=== PATIENT | male | born 1930 | race Caucasian/White ===

== ENCOUNTER 2016-10-23 08:51 | Inpatient (IN) | payer OTHER ==
[~2016-10-23] VITALS: Ht 172.7 cm; Wt 80.7 kg
[~2016-10-23 08:51] MED LIST: ASPI-1035 PO; LISI40TA4 PO; NAPROXEN PO; SIMV20TA2 PO; [UNRECOGNIZED DRUG - CODE]
[2016-10-23 11:11] LABS: BASOPHILS % 0.4 % (0.0-2.0); HEMATOCRIT. 29.8 % (42.0-52.0); HEMOGLOBIN. 9.8 g/dL (14.0-18.0); LYMPHOCYTES % 14.8 % (20.0-50.0); MEAN CORPUSCULAR HEMOGLOBIN 28.4 pg (28.0-32.0); MEAN CORPUSCULAR HGB CONC 32.7 g/dL (31.0-37.0); MEAN CORPUSCULAR VOLUME 86.8 fL (80.0-94.0); MEAN PLATELET VOLUME 8.5 fl (7.4-10.4); MONOCYTES % 6.5 % (2.0-8.0); NEUTROPHILS % 70.3 % (40.0-76.0); PLATELET 179 x1000/uL (130-400); RED BLOOD CELL COUNT 3.44 mill/uL (4.7-6.1); RED CELL DISTRIBUTION WIDTH 14.6 % (11.6-14.6); WHITE BLOOD COUNT 7.4 x1000/uL (4.5-11.0)
[2016-10-23 11:24] LABS: AMMONIA 27 uMol/L (<32); INDEX HEMOLYSI 1 (1-3)
[2016-10-23 11:28] LABS: ALANINE AMINOTRANSFERASE 19 IU/L (13-61); ANION GAP 8; CALCIUM 8.3 mg/dL (8.5-10.1); CARBON DIOXIDE 28 mEq/L (21-32); CHLORIDE 108 mEq/L (98-107); ETHANOL BLOOD < 10 mg/dL; INDEX HEMOLYSI 1 (1-3); INDEX ICTERIC 1 (1-4); INDEX LIPEMIC 1 (1-3); TROPONIN I < 0.02 ng/mL (0.00-0.04); UREA NITROGEN BLOOD 25 mg/dL (7-21); eGFR > 60 mL/min (>60)
[2016-10-23 11:30] LABS: PHENOBARBITAL < 2.1 ug/mL (15.0-40.0)
[2016-10-23 11:30] LABS: CLARITY URINE CLEAR (CLEAR); COLOR URINE YELLOW (YELLOW); GLUCOSE URINE NEGATIVE (NEGATIVE); KETONES URINE NEGATIVE (NEGATIVE); LEUKOCYTE ESTERASE URINE 1+ (NEGATIVE); NITRITE URINE POSITIVE (NEGATIVE); OCCULT BLOOD URINE 2+ (NEGATIVE); PROTEIN URINE NEGATIVE (NEGATIVE); UROBILINOGEN URINE 0.2 E.U./dL (0.2-1.0)
[2016-10-23 11:55] LABS: *AMPHETAMINES SCREEN URINE NEGATIVE (NEGATIVE); *BARBITURATES SCREEN URINE NEGATIVE (NEGATIVE); *BENZODIAZEPINES SCREEN URINE NEGATIVE (NEGATIVE); *COCAINE SCREEN URINE NEGATIVE (NEGATIVE); CANNABINOID URINE SCREEN NEGATIVE (NEGATIVE); ECSTASY MDMA SCREEN URINE NEGATIVE (NEGATIVE); METHADONE URINE SCREEN NEGATIVE (NEGATIVE); OPIATES URINE SCREEN NEGATIVE (NEGATIVE); PHENCYCLIDINE URINE SCREEN NEGATIVE (NEGATIVE)
[2016-10-23 11:58] LABS: BACTERIA URINE 1+; SQUAMOUS EPITHELIAL CELL URINE RARE /lpf (RARE/1+)
[2016-10-23] MEDS ORDERED: PHENYTOIN SODIUM 1,000 MG in SODIUM CHLORIDE 0.9% 100 ML IV NR (17:00)
[2016-10-23] MEDS ORDERED: ONDANSETRON HCL 4MG/2ML VIAL IV PRN (19:30)
[2016-10-23] MEDS ORDERED: ACETAMINOPHEN 325MG TABLET PO PRN (19:30)
[2016-10-23] MEDS ORDERED: DEXTROSE 50% WATER 50ML SYRINGE IV PRN (19:30)
[2016-10-23 20:00] VITALS: BP_SYST 122; BP_DIAS 61; BP_DIAS 73
[2016-10-23] MEDS: INSULIN LISPRO 100 UNITS/ML SUBCUT SCH (21:00)
[2016-10-23] MEDS: BLOOD SUGAR DIAGNOSTIC STRIP TEST SCH (21:00)
[2016-10-23] MEDS: HYDRALAZINE HCL 100MG TABLET PO SCH (22:00)
[2016-10-23] MEDS: PHENYTOIN SODIUM EXTENDED 100MG CAPSULE PO SCH (22:00)
[2016-10-23] MEDS: SODIUM CHLORIDE 0.9% 1,000 ML IV SCH (22:55)
[2016-10-24] VITALS: BP 108/55
[2016-10-24 04:00] VITALS: BP 114/60
[2016-10-24 07:03] LABS: BASOPHILS % 0.3 % (0.0-2.0); EOSINOPHILS % 5.7 % (0.0-5.0); HEMOGLOBIN. 10.1 g/dL (14.0-18.0); LYMPHOCYTES % 22.8 % (20.0-50.0); MEAN CORPUSCULAR HEMOGLOBIN 28.4 pg (28.0-32.0); MEAN CORPUSCULAR HGB CONC 32.6 g/dL (31.0-37.0); MEAN CORPUSCULAR VOLUME 87.1 fL (80.0-94.0); MONOCYTES % 8.6 % (2.0-8.0); NEUTROPHILS % 62.6 % (40.0-76.0); PLATELET 180 x1000/uL (130-400); RED BLOOD CELL COUNT 3.56 mill/uL (4.7-6.1); RED CELL DISTRIBUTION WIDTH 14.5 % (11.6-14.6)
[2016-10-24 07:54] LABS: CHLORIDE 108 mEq/L (98-107); INDEX HEMOLYSI 1 (1-3); INDEX ICTERIC 1 (1-4); INDEX LIPEMIC 1 (1-3)
[2016-10-24] MEDS: BLOOD SUGAR DIAGNOSTIC STRIP TEST SCH ×4 (08:06→21:02)
[2016-10-24] MEDS: HYDRALAZINE HCL 100MG TABLET PO SCH ×2 (08:31→17:00)
[2016-10-24] MEDS: DOCUSATE SODIUM 100MG CAPSULE PO SCH ×2 (08:31→17:00)
[2016-10-24] MEDS: PHENYTOIN SODIUM EXTENDED 100MG CAPSULE PO SCH ×3 (08:31→17:38)
[2016-10-24 08:33] LABS: ANION GAP 17; CARBON DIOXIDE 19 mEq/L (21-32); PHENYTOIN 14.3 ug/mL (10-20); UREA NITROGEN BLOOD 22 mg/dL (7-21); eGFR > 60 mL/min (>60)
[2016-10-24 12:00] VITALS: BP 103/58
[2016-10-24] MEDS: INSULIN LISPRO 100 UNITS/ML SUBCUT SCH ×3 (12:40→20:16)
[2016-10-24] MEDS: SODIUM CHLORIDE 0.9% 1,000 ML IV SCH (12:53)
[2016-10-24] MEDS: LEVOFLOXACIN 500MG PREMIX 100 ML IV SCH (13:03)
[2016-10-24] MEDS: LORAZEPAM 2MG/ML CPJ IM PRN ×2 (15:17→20:40)
[2016-10-24 16:00] VITALS: BP 100/56
[2016-10-24 20:00] VITALS: BP 108/49
[2016-10-25] VITALS: BP 115/45
[2016-10-25 04:00] VITALS: BP 115/55
[2016-10-25] MEDS: BLOOD SUGAR DIAGNOSTIC STRIP TEST SCH ×4 (05:50→21:00)
[2016-10-25] MEDS: INSULIN LISPRO 100 UNITS/ML SUBCUT SCH ×4 (05:50→21:00)
[2016-10-25 08:00] VITALS: BP 119/59
[2016-10-25] MEDS: PHENYTOIN SODIUM EXTENDED 100MG CAPSULE PO SCH ×3 (08:47→17:58)
[2016-10-25] MEDS: DOCUSATE SODIUM 100MG CAPSULE PO SCH ×2 (08:47→17:55)
[2016-10-25] MEDS: HYDRALAZINE HCL 100MG TABLET PO SCH ×2 (08:47→17:58)
[2016-10-25 12:00] VITALS: BP 113/57
[2016-10-25] MEDS: LEVOFLOXACIN 500MG PREMIX 100 ML IV SCH (12:26)
[2016-10-25 16:00] VITALS: BP_SYST 105; BP_SYST 135; BP_DIAS 55; BP_DIAS 58
[2016-10-25 20:00] VITALS: BP 107/47
[2016-10-26] VITALS: BP 103/51
[2016-10-26 04:00] VITALS: BP 105/41
[2016-10-26] MEDS: INSULIN LISPRO 100 UNITS/ML SUBCUT SCH ×2 (06:21→11:55)
[2016-10-26] MEDS: BLOOD SUGAR DIAGNOSTIC STRIP TEST SCH ×2 (06:21→11:55)
[2016-10-26 08:00] VITALS: BP 95/41
[2016-10-26] MEDS: HYDRALAZINE HCL 100MG TABLET PO SCH (08:15)
[2016-10-26] MEDS: PHENYTOIN SODIUM EXTENDED 100MG CAPSULE PO SCH ×2 (08:18→12:05)
[2016-10-26] MEDS: DOCUSATE SODIUM 100MG CAPSULE PO SCH (08:18)
[2016-10-26 10:39] VITALS: BP 108/49
[2016-10-26] MEDS: LEVOFLOXACIN 500MG PREMIX 100 ML IV SCH (11:50)
[2016-10-26 11:54] VITALS: BP 116/56
== END 2016-10-26 14:22 | disposition home or self-care (01) | DRG 53 ==
LOC: ER 08:58 → 8WST 13:43
PROVIDERS: ADMIT Hospitalist; ATTEND Hospitalist
DX: G40.909 Epilepsy, unspecified, not intractable, without status epilepticus (principal); N39.0 Urinary tract infection, site not specified; E11.9 Type 2 diabetes mellitus without complications; I10 Essential (primary) hypertension; Z88.0 Allergy status to penicillin; Z79.82 Long term (current) use of aspirin; Z79.899 Other long term (current) drug therapy
CPT/HCPCS: 36415; 51702; 70450; 71010; 80048; 80053; 80184; 80185; 80305; 81001; 82140; 82962; 83036; 84484; 85025; 92610; 96374; 99285; C1893; G0482; J1165; J1956; J2060; J7030; J7050

== ENCOUNTER 2016-12-27 13:33 | Inpatient (IN) | payer OTHER ==
[~2016-12-27] VITALS: Ht 167.6 cm; Wt 68.0 kg
[2016-12-27] MEDS ORDERED: SODIUM CHLORIDE 0.9% 1,000 ML IV ONE (14:26)
[2016-12-27] MEDS ORDERED: LEVETIRACETAM 500MG PREMIX 100 ML IV ONE (14:30)
[2016-12-27 14:59] LABS: BASOPHILS % 0.3 % (0.0-2.0); EOSINOPHILS % 6.5 % (0.0-5.0); HEMOGLOBIN. 10.7 g/dL (14.0-18.0); LYMPHOCYTES % 13.2 % (20.0-50.0); MEAN CORPUSCULAR HEMOGLOBIN 28.8 pg (28.0-32.0); MEAN CORPUSCULAR VOLUME 85.9 fL (80.0-94.0); MEAN PLATELET VOLUME 8.8 fl (7.4-10.4); MONOCYTES % 8.4 % (2.0-8.0); NEUTROPHILS % 71.6 % (40.0-76.0); PLATELET 156 x1000/uL (130-400); RED BLOOD CELL COUNT 3.72 mill/uL (4.7-6.1); RED CELL DISTRIBUTION WIDTH 14.7 % (11.6-14.6)
[2016-12-27 15:00] LABS: CHLORIDE 106 mEq/L (98-107); PARTIAL THROMBOPLASTIN TIME 25.5 sec (24.0-34.0); PROTHROMBIN TIME 10.6 sec
[2016-12-27 15:02] LABS: AMMONIA 19 uMol/L (<32)
[2016-12-27 15:05] LABS: CARBON DIOXIDE 27 mEq/L (21-32); ETHANOL BLOOD < 10 mg/dL; PHENYTOIN 2.3 ug/mL (10-20)
[2016-12-27 15:06] LABS: CREATINE KINASE MB FRACTION 1.5 ng/mL (0.5-3.6); TROPONIN I < 0.02 ng/mL (0.00-0.04)
[2016-12-27 15:07] LABS: CARBAMAZEPINE < 0.5 ug/mL (4-12); PHENOBARBITAL < 2.1 ug/mL (15.0-40.0); VALPROIC ACID < 3.0 ug/mL (50-100)
[2016-12-27] MEDS ORDERED: PHENYTOIN SODIUM 1,000 MG in SODIUM CHLORIDE 0.9% 100 ML IV ONE (15:45)
[2016-12-27] MEDS ORDERED: ASPIRIN 300MG SUPP PR ONE (17:15)
[2016-12-27 17:29] LABS: CLARITY URINE CLEAR (CLEAR); COLOR URINE YELLOW (YELLOW); GLUCOSE URINE NEGATIVE (NEGATIVE); KETONES URINE NEGATIVE (NEGATIVE); LEUKOCYTE ESTERASE URINE NEGATIVE (NEGATIVE); NITRITE URINE NEGATIVE (NEGATIVE); OCCULT BLOOD URINE NEGATIVE (NEGATIVE); PROTEIN URINE NEGATIVE (NEGATIVE); SPECIFIC GRAVITY URINE 1.014 (1.005-1.030); UROBILINOGEN URINE 0.2 E.U./dL (0.2-1.0)
[2016-12-27 17:41] LABS: *AMPHETAMINES SCREEN URINE NEGATIVE (NEGATIVE); *BARBITURATES SCREEN URINE NEGATIVE (NEGATIVE); *BENZODIAZEPINES SCREEN URINE NEGATIVE (NEGATIVE); *COCAINE SCREEN URINE NEGATIVE (NEGATIVE); CANNABINOID URINE SCREEN NEGATIVE (NEGATIVE); METHADONE URINE SCREEN NEGATIVE (NEGATIVE); OPIATES URINE SCREEN NEGATIVE (NEGATIVE); PHENCYCLIDINE URINE SCREEN NEGATIVE (NEGATIVE)
[2016-12-27] MEDS ORDERED: ACETAMINOPHEN 325MG TABLET PO PRN (18:30)
[2016-12-27] MEDS ORDERED: DOCUSATE SODIUM 100MG CAPSULE PO PRN (18:30)
[2016-12-27] MEDS ORDERED: NITROGLYCERIN 0.4MG TABLET SL SL PRN (18:30)
[2016-12-27] MEDS ORDERED: ZOLPIDEM TARTRATE 5MG TABLET PO PRN (18:30)
[2016-12-27] MEDS ORDERED: CLONIDINE 0.1MG TABLET PO PRN (18:30)
[2016-12-27] MEDS ORDERED: IPRATROPIUM/ALBUTEROL 0.5-3(2.5)MG/3ML NEB INH PRN (18:30)
[2016-12-27] MEDS ORDERED: ONDANSETRON HCL 4MG/2ML VIAL IV PRN (18:30)
[2016-12-27] MEDS ORDERED: LORAZEPAM 2MG/ML CPJ IV PRN (18:30)
[2016-12-27] MEDS ORDERED: DIPHENHYDRAMINE 50MG/ML VIAL IV PRN (18:30)
[2016-12-27] MEDS ORDERED: MAGNESIUM/ALUMINUM HYDROXIDE/SIMETHICONE 30ML UDC PO PRN (18:30)
[2016-12-27] MEDS ORDERED: GUAIFENESIN 200MG/10ML SUGAR FREE UDC PO PRN (18:30)
[2016-12-27] MEDS ORDERED: METOCLOPRAMIDE HCL 10MG/2ML VIAL IV PRN (18:45)
[2016-12-27] MEDS ORDERED: DEXTROSE 50% WATER 50ML SYRINGE IV PRN (18:45)
[2016-12-27] MEDS ORDERED: TRAMADOL 50MG TABLET PO PRN (18:46)
[2016-12-27] MEDS ORDERED: NA PHOS,M-B/NA PHOS,DI-BA ENEMA 118ML PR PRN (19:00)
[2016-12-27 20:00] VITALS: BP_SYST 109; BP_SYST 122; BP_DIAS 52
[2016-12-27] MEDS: INSULIN LISPRO 100 UNITS/ML SUBCUT SCH (21:00)
[2016-12-27] MEDS: BLOOD SUGAR DIAGNOSTIC STRIP TEST SCH (21:01)
[2016-12-27] MEDS: PHENYTOIN SODIUM EXTENDED 100MG CAPSULE PO SCH (21:01)
[2016-12-27] MEDS: ENOXAPARIN 40MG/0.4ML SYR SUBCUT SCH (21:01)
[2016-12-28 00:48] VITALS: BP 116/64
[2016-12-28 04:39] VITALS: BP 130/69
[2016-12-28] MEDS: BLOOD SUGAR DIAGNOSTIC STRIP TEST SCH ×4 (06:00→21:00)
[2016-12-28 07:48] LABS: CLARITY URINE CLEAR (CLEAR); COLOR URINE YELLOW (YELLOW); GLUCOSE URINE NEGATIVE (NEGATIVE); KETONES URINE NEGATIVE (NEGATIVE); LEUKOCYTE ESTERASE URINE NEGATIVE (NEGATIVE); NITRITE URINE NEGATIVE (NEGATIVE); OCCULT BLOOD URINE NEGATIVE (NEGATIVE); PH URINE 5.5 (4.5-8.0); PROTEIN URINE NEGATIVE (NEGATIVE); SPECIFIC GRAVITY URINE 1.008 (1.005-1.030); UROBILINOGEN URINE 0.2 E.U./dL (0.2-1.0)
[2016-12-28] MEDS: INSULIN LISPRO 100 UNITS/ML SUBCUT SCH ×4 (07:50→21:00)
[2016-12-28 07:59] LABS: *AMPHETAMINES SCREEN URINE NEGATIVE (NEGATIVE); *BARBITURATES SCREEN URINE NEGATIVE (NEGATIVE); *BENZODIAZEPINES SCREEN URINE NEGATIVE (NEGATIVE); *COCAINE SCREEN URINE NEGATIVE (NEGATIVE); CANNABINOID URINE SCREEN NEGATIVE (NEGATIVE); METHADONE URINE SCREEN NEGATIVE (NEGATIVE); OPIATES URINE SCREEN NEGATIVE (NEGATIVE); PHENCYCLIDINE URINE SCREEN NEGATIVE (NEGATIVE)
[2016-12-28 08:00] VITALS: BP 124/64
[2016-12-28] MEDS: PANTOPRAZOLE SODIUM 40 MG/VIAL IV SCH (08:48)
[2016-12-28] MEDS: ZINC SULFATE 220 MG ( 50 ) CAPSULE PO SCH (08:48)
[2016-12-28] MEDS: ASPIRIN 325MG EC TABLET PO SCH (09:28)
[2016-12-28 12:00] VITALS: BP 121/61
[2016-12-28 16:00] VITALS: BP 130/64
[2016-12-28 20:00] VITALS: BP 132/63
[2016-12-28] MEDS: ENOXAPARIN 40MG/0.4ML SYR SUBCUT SCH (20:00)
[2016-12-28] MEDS: PHENYTOIN SODIUM EXTENDED 100MG CAPSULE PO SCH (21:18)
[2016-12-29 04:00] VITALS: BP 118/48
[2016-12-29] MEDS: BLOOD SUGAR DIAGNOSTIC STRIP TEST SCH ×2 (06:43→12:42)
[2016-12-29] MEDS: INSULIN LISPRO 100 UNITS/ML SUBCUT SCH ×2 (07:37→12:42)
[2016-12-29 08:00] VITALS: BP 113/55
[2016-12-29] MEDS: ASPIRIN 325MG EC TABLET PO SCH (08:40)
[2016-12-29] MEDS: ZINC SULFATE 220 MG ( 50 ) CAPSULE PO SCH (08:40)
[2016-12-29] MEDS: PANTOPRAZOLE SODIUM 40 MG/VIAL IV SCH (08:40)
[2016-12-29 12:49] VITALS: BP 134/62
[2016-12-29 14:02] VITALS: BP 134/62
[2016-12-29 16:53] VITALS: BP 125/68
== END 2016-12-29 17:00 | disposition home or self-care (01) | DRG 53 ==
LOC: ER 13:48 → 6WST 18:34
PROVIDERS: ADMIT Internal Medicine; ATTEND Internal Medicine
DX: G40.909 Epilepsy, unspecified, not intractable, without status epilepticus (principal); G93.40 Encephalopathy, unspecified; D63.8 Anemia in other chronic diseases classified elsewhere; E11.9 Type 2 diabetes mellitus without complications; I10 Essential (primary) hypertension; K44.9 Diaphragmatic hernia without obstruction or gangrene; R29.810 Facial weakness; Z79.4 Long term (current) use of insulin; Z88.0 Allergy status to penicillin
CPT/HCPCS: 36415; 70450; 70551; 71010; 80053; 80156; 80165; 80184; 80185; 80305; 81003; 82140; 82553; 82962; 84484; 85025; 85610; 85730; 87086; 93005; 93970; 96361; 96365; 97162; 99285; C1893; C9113; G0482; J1165; J1650; J1953; J7030; J7050; A4315

== ENCOUNTER 2017-06-13 06:02 | Emergency (ER) | payer OTHER ==
[~2017-06-13] VITALS: Ht 170.2 cm; Wt 54.0 kg
[~2017-06-13 06:02] MED LIST changes: -ASPI-1035 PO; +ASPI-1158 PO; -[UNRECOGNIZED DRUG - CODE]; +[UNRECOGNIZED DRUG - CODE] PO
[2017-06-13] MEDS ORDERED: LEVETIRACETAM 500MG PREMIX 100 ML IV ONE (06:30)
[2017-06-13 06:44] LABS: BASOPHILS % 0.4 % (0.0-2.0); EOSINOPHILS % 4.4 % (0.0-5.0); HEMATOCRIT. 37.7 % (42.0-52.0); HEMOGLOBIN. 12.5 g/dL (14.0-18.0); MEAN CORPUSCULAR HEMOGLOBIN 29.8 pg (28.0-32.0); MEAN CORPUSCULAR VOLUME 90.1 fL (80.0-94.0); MEAN PLATELET VOLUME 8.4 fl (7.4-10.4); MONOCYTES % 6.4 % (2.0-8.0); NEUTROPHILS % 67.8 % (40.0-76.0); PLATELET 213 x1000/uL (130-400); RED BLOOD CELL COUNT 4.19 mill/uL (4.7-6.1); RED CELL DISTRIBUTION WIDTH 13.8 % (11.6-14.6)
[2017-06-13 06:52] LABS: PROTHROMBIN TIME 10.7 sec (9.4-11.6)
[2017-06-13 06:58] LABS: AMMONIA < 25 uMol/L (<32)
[2017-06-13 07:00] LABS: CARBON DIOXIDE 25 mEq/L (21-32); CHLORIDE 104 mEq/L (98-107); ETHANOL BLOOD < 10 mg/dL; TROPONIN I < 0.02 ng/mL (0.00-0.04)
[2017-06-13 07:12] LABS: CARBAMAZEPINE < 0.5 ug/mL (4-12); VALPROIC ACID < 3.0 ug/mL (50-100)
[2017-06-13 07:13] LABS: PHENOBARBITAL < 2.1 ug/mL (15.0-40.0)
[2017-06-13 11:43] VITALS: BP 125/52
== END 2017-06-13 11:44 | disposition home or self-care (01) ==
LOC: ER 06:02
DX: G40.909 Epilepsy, unspecified, not intractable, without status epilepticus (principal); E11.9 Type 2 diabetes mellitus without complications; I25.10 Atherosclerotic heart disease of native coronary artery without angina pectoris; Z86.73 Personal history of transient ischemic attack (TIA), and cerebral infarction without residual deficits; Z88.0 Allergy status to penicillin; Z88.8 Allergy status to other drugs, medicaments and biological substances
CPT/HCPCS: 36415; 70450; 71010; 80053; 80156; 80165; 80184; 80185; 82140; 83690; 83880; 84484; 85025; 85610; 93005; 96365; 99285; C1893; G0482; J1953; Z7610